=== PATIENT | male | born 1955 | race Caucasian/White ===

== ENCOUNTER 2025-01-12 14:59 | Emergency (ER) | payer OTHER ==
[~2025-01-12] VITALS: Ht 190.5 cm; Wt 85.0 kg
[2025-01-12] MEDS: CYCLOBENZAPRINE 10MG TABLET PO ONE (16:43)
[2025-01-12] MEDS: ACETAMINOPHEN 325MG TABLET PO ONE (16:43)
[2025-01-12] MEDS: KETOROLAC 30MG/ML VIAL IM ONE (16:44)
[2025-01-12] MEDS ORDERED: MORPHINE SULFATE 4 MG/ML INJ (FOR IV/IM USE) IV STA (17:20)
[2025-01-12] MEDS ORDERED: ONDANSETRON HCL 4MG/2ML INJ IV STA (17:20)
[2025-01-12] MEDS ORDERED: KETAMINE HCL 50 MG/ML 10ML IV ONE (17:30)
[2025-01-12] MEDS ORDERED: PROPOFOL 200MG/20ML VIAL IV ONE (17:30)
[2025-01-12] MEDS: ONDANSETRON HCL 4MG/2ML INJ IV NR (20:03)
[2025-01-12] MEDS: KETAMINE HCL 50 MG/ML 10ML IV NR (20:03)
[2025-01-12] MEDS: MORPHINE SULFATE 4 MG/ML INJ (FOR IV/IM USE) IV NR (20:03)
[2025-01-12] MEDS: PROPOFOL 200MG/20ML VIAL IV NR (20:04)
[2025-01-12] MEDS: PROPOFOL 200MG/20ML VIAL IV ONE ×2 (20:15→22:03)
[2025-01-12 20:30] VITALS: PULSE 70; RESP 16; O2SAT 98
[2025-01-12 23:05] LABS: BASOPHILS % 0.0 % (0.0-2.0); EOSINOPHILS % 0.0 % (0.0-5.0); HEMATOCRIT. 40.1 % (42.0-52.0); HEMOGLOBIN. 13.2 g/dL (14.0-18.0); LYMPHOCYTES % 8.9 % (20.0-50.0); MEAN PLATELET VOLUME 8.0 fl (7.4-10.4); MONOCYTES % 7.1 % (2.0-8.0); NEUTROPHILS % 84.0 % (40.0-76.0); PLATELET 184 x1000/uL (130-400); RED BLOOD CELL COUNT 4.31 mill/uL (4.7-6.1); RED CELL DISTRIBUTION WIDTH 13.0 % (11.6-14.6)
[2025-01-12 23:18] LABS: CREATININE 0.9 mg/dL (0.6-1.3)
[2025-01-12 23:19] LABS: UREA NITROGEN BLOOD 18 mg/dL (9-23)
[2025-01-13 05:09] VITALS: BP 148/85; PULSE 79; RESP 15; TEMP 36.5; O2SAT 96
== END 2025-01-13 03:13 | disposition short-term general hospital (02) ==
LOC: ER 14:59
DX: S42.032A Displaced fracture of lateral end of left clavicle, initial encounter for closed fracture (principal); S73.005A Unspecified dislocation of left hip, initial encounter; S50.312A Abrasion of left elbow, initial encounter; E78.00 Pure hypercholesterolemia, unspecified; I10 Essential (primary) hypertension; R51.9 Headache, unspecified; Z88.5 Allergy status to narcotic agent; X58.XXXA Exposure to other specified factors, initial encounter; Y93.55 Activity, bike riding; Y92.89 Other specified places as the place of occurrence of the external cause; Y99.8 Other external cause status
CPT/HCPCS: 99285; 94070; 27250; 70450; 96374; 80048; 85025; 36415; 73501; 73502; 73030; 73080; 72192; 96372; 99152; J1885; J3490; J2405; J2704; J2270; A4606